=== PATIENT | female | born 1975 | race Hispanic/Latino ===

== ENCOUNTER 2018-05-13 08:25 | Outpatient (CLI) | payer BC | END 2018-05-13 08:26 | disposition home or self-care (01) | LOC: BICMAMMO 08:25 | PROVIDERS: ATTEND Student in an Organized Health Care Education/Training Program | DX: Z12.31 Encounter for screening mammogram for malignant neoplasm of breast (principal); Z80.3 Family history of malignant neoplasm of breast | CPT/HCPCS: 77063; 77067 ==

== ENCOUNTER 2019-03-17 10:25 | Day surgery (SDC) | payer BC ==
[2019-03-16 13:44] VITALS: BMI 20.7
[2019-03-17] MEDS ORDERED: Ketorolac Tromethamine 30 MG/ML VIAL ONE (10:45)
[2019-03-17 11:01] LABS: #Basophils 0.2 thou/uL (0.0-0.2); #Eosinphils 0.5 thou/uL (0.0-0.7); #Lymphocytes 3.6 thou/uL (1.20-3.40); #Monocytes 0.6 thou/uL (0.11-0.59); #Neutrophils 3.9 thou/uL (1.40-6.50); %Eosinophils 5.6 % (0.0-10.0); %Lymphocytes 41.4 % (21.0-51.0); %Monocytes 6.8 % (0.0-10.0); %Neutrophils 44.2 % (42.0-75.0); Hemoglobin 13.3 g/dL (12.0-16.0); Mean Corpuscular HGB CONC 33.7 g/dL (32.0-36.0); Mean Corpuscular Hemoglobin 30.7 pg (27.0-31.0); Mean Corpuscular Volume 91.1 fL (78.0-98.0); Mean Platelet Volume 6.5 fL (7.4-10.4); Platelet Count 297 thou/uL (130-400); RBC Distribution Width 12.6 % (11.5-14.5); Red Blood Cell (RBC) Count 4.32 mill/uL (4.20-5.40); White Blood Cell (WBC) Count 8.8 thou/uL (4.8-10.8)
[2019-03-17 11:21] LABS: BHCG - Serum Negative (NEGATIVE); Pregs Control Background? CLEAR/WHITE (CLR/WHITE); Pregs Control Bar Appear? YES (CONTROL BAR)
[2019-03-17 11:23] LABS: Anion Gap 10 mmol/L (10-20); BUN (Urea Nitrogen) 12 mg/dL (7.0-18.7); Calc. Creatinine Clearance 84 mL/min (70-130); Calcium 9.2 mg/dL (7.8-10.44); Carbon Dioxide 26 mmol/L (22-29); Chloride 104 mmol/L (98-107); Estimated GFR-MDRD 82; Glucose 99 mg/dL (70-105); Potassium 3.6 mmol/L (3.5-5.1); Sodium 136 mmol/L (136-145)
[2019-03-17] MEDS ORDERED: Bupivacaine/Epinephrine 0.25% 30 ML VIAL ONE (11:42)
[2019-03-17] MEDS ORDERED: Midazolam HCl 2 mg/2 ml Vial ONE ×2 (11:54→12:44)
[2019-03-17] MEDS ORDERED: Fentanyl 100 MCG/2 ML VIAL ONE ×2 (11:54→14:11)
[2019-03-17] MEDS ORDERED: HYDROcodone/Acetaminophen 5/325 mg Tablet ONE (15:50)
--- NOTE | 2019-03-17 20:45 | OP ---
DATE OF PROCEDURE: 03/17/2019 PREOPERATIVE DIAGNOSIS: Umbilical hernia. POSTOPERATIVE DIAGNOSIS: Umbilical hernia. PROCEDURE PERFORMED: Umbilical hernia repair with mesh using 4.3-cm Ventralex mesh. ANESTHESIA: General with laryngeal mask airway. INDICATIONS: The patient is a 43-year-old female. She has an easily visible and palpable umbilical hernia. She was taken to the operative room at this time for repair. DESCRIPTION OF PROCEDURE: Informed consent was obtained. The patient was taken to the operating room where general endotracheal anesthesia was obtained with the patient in supine position. Abdomen was prepped with ChloraPrep and draped in sterile fashion. Local anesthetic was infiltrated using 0.25% Marcaine with epinephrine. A curvilinear infraumbilical incision was created, and dissection was carried through skin and subcutaneous tissue. The umbilicus was dissected off the underlying hernia sac and fascia and reflected superiorly. The hernia defect was circumscribed at its base with electrocautery. The contents appeared to primarily be preperitoneal fat where it was amputated using electrocautery. Meticulous hemostasis was maintained. The preperitoneal space was dissected circumferentially using primarily blunt dissection, but sharp dissection as indicated. 4.3-cm mesh patch was obtained and placed in the preperitoneal space. The tails were secured to the fascia superiorly and inferiorly using interrupted sutures of 0 Prolene. The lateral aspects of the defect were closed with 0 Prolene as well. The umbilicus was secured down to the fascia with 2 interrupted sutures of 3-0 Vicryl. The subcutaneous tissue was approximated with a running suture of 3-0 Monocryl and the skin edges with 4-0 Monocryl. Dermabond was placed externally. A compression dressing was applied using cotton balls and a Tegaderm dressing. There were no complications. The patient tolerated the procedure well and was taken to recovery room in stable condition. Job ID: [id number]
== END 2019-03-17 16:00 | disposition home or self-care (01) ==
LOC: SDC 10:25
PROVIDERS: ATTEND Specialist
PROC: 0WUF0JZ Supplement Abdominal Wall with Synthetic Substitute, Open Approach (ICD-10-PCS; principal; 2019-03-17)
DX: K42.9 Umbilical hernia without obstruction or gangrene (principal); Z88.6 Allergy status to analgesic agent
CPT/HCPCS: 36415; 80048; 84703; 85025; J0131; J0690; J1885; J2250; J3010